=== PATIENT | male | born 1985 | race Caucasian/White ===

== ENCOUNTER 2020-11-21 12:13 | Outpatient (CLI) | payer BC, SELFPAY ==
--- NOTE | ~2020-11-21 | XR_ITS ---
XR sacrum coccyx min 2V DATE: 11/21/2020 12:34 INDICATION: Left sacroiliac pain TECHNIQUE: AP, angled AP and lateral views of the sacrum and coccyx COMPARISON: None FINDINGS: Normal alignment at the pubic symphysis and sacroiliac joints. No sacral or coccygeal fract ure or bone destruction is detected. No erosive change or ankylosis at the sacroiliac joints. IMPRESSION: Negative Reviewed, dictated and finalized at location B. IMPRESSION: Negative
== END 2020-11-21 12:14 | disposition home or self-care (01) ==
PROVIDERS: PCP Family Medicine; Visit Provider Physician Assistant
DX: M53.3 Sacrococcygeal disorders, not elsewhere classified (principal); G89.29 Other chronic pain; M54.5 Low back pain
CPT/HCPCS: 72220

== ENCOUNTER 2023-03-17 10:11 | Emergency (ER) | payer OTHER, SELFPAY ==
--- NOTE | ~2023-03-17 | XR_ITS ---
EXAMINATION: XR chest 2V 03/17/2023 10:57 INDICATION: Left-sided chest pain PROCEDURE: 2 view chest COMPARISON: 06/17/2018 FINDINGS: The lungs are clear. The cardiomediastinal silhouette is within normal limits. There are no pleural effusions. There is no pneumothorax suspected. IMPRESSION: 1: NO ACUTE CARDIOPULMONARY DISEASE. Reviewed, dictated and finalized at location L. MERCE MARKETING MANAGER
--- NOTE | 2023-03-17 10:18 | ECG_ITS ---
Measurements Intervals [place] Rate: 113 P: 65 NE: 135 QRS: 86 QRSD: 105 T: 46 QT: 323 QTc: 444 Interpretive Statements SINUS TACHYCARDIA INCOMPLETE RIGHT BUNDLE BRANCH BLOCK ABNORMAL ECG NO PREVIOUS ECG AVAILABLE FOR COMPARISON Electronically Signed On 03-17-2023 10:31:32 BLAST HOLE DRILLER by Jaspal Abraham D.O.
[2023-03-17 10:35] VITALS: BP 170/97; PULSE 105; RESP 16; TEMP 36.7; O2SAT 100
[2023-03-17 10:45] LABS: INR 0.9; Prothrombin Time 12.2 Seconds (11.1-14.7)
[2023-03-17 10:46] LABS: Partial Thromboplastin Time 24.8 SECONDS (22.3-36.8)
[2023-03-17 10:48] LABS: Alanine Aminotransferase 21 U/L (6-50); Albumin Level 4.3 g/dL (3.5-5.1); Alkaline Phosphatase 39 U/L (38-126); Anion Gap 7 mmol/L (8-16); Aspartate Amino Transferase 25 U/L (17-59); Bilirubin,Total 0.7 mg/dL (0.2-1.3); Blood Urea Nitrogen 10 mg/dL (9-20); Calcium 8.5 mg/dL (8.4-10.2); Carbon Dioxide 23 mmol/L (22-30); Chloride 109 mmol/L (98-107); Estimated CRCL calculation 91 ml/min; Estimated Glomerular Filt Rate > 60; Glucose 97 mg/dL (65-110); Lipase 153 U/L (23-300); Potassium 4.1 mmol/L (3.4-5.0); Sodium 139 mmol/L (137-145)
[2023-03-17 10:51] LABS: Basophils Absolute Auto 0.1 K/mm3 (0.0-0.1); Basophils Percent Auto 0.9 % (0.2-1.2); Eosinophils Absolute Auto 0.2 K/mm3 (0-0.3); Hematocrit 48.9 % (42.0-52.0); Hemoglobin 16.2 g/dL (14.0-18.0); Immature Granulocyte Absolute 0.04 K/mm3 (0.00-0.031); Immature Granulocyte Percent A 0.4 % (0-0.5); Lymphocytes Absolute Auto 2.23 K/mm3 (0.9-3.2); Lymphocytes Percent Auto 21.4 % (18.3-44.2); Mean Corpuscular HGB Conc 33.1 g/dl (32-36); Mean Corpuscular Hemoglobin 31.8 pg (26-34); Mean Corpuscular Volume 95.9 fl (80-100); Mean Platelet Volume 9.5 fl (7.4-10.4); Monocytes Absolute Auto 0.7 K/mm3 (0.1-0.6); Monocytes Percent Auto 6.3 % (2.6-8.5); Neutrophils Absolute Auto 7.2 K/mm3 (1.3-6.7); Platelet Count Result 253 k/mm3 (150-375); Red Cell Distribution Width 13.5 % (11.5-14.5); White Blood Count 10.4 K/mm3 (4.5-10.0)
[2023-03-17 10:54] LABS: Troponin I < 0.012 ng/mL (0.000-0.034)
[2023-03-17 12:00] VITALS: BP 124/72; PULSE 72; RESP 16; O2SAT 98
--- NOTE | 2023-03-17 12:13 | ED.CHESTPAIN ---
HPI - Chest Pain General Chief Complaint: Chest Pain Stated Complaint: chest pain Time Seen by Provider: 03/17/23 12:02 History of Present Illness HPI narrative: this 37-year-old white male presents with chest tightness since 3:00 p.m. yesterday. Patient states the symptoms have been constant since onset. Patient describes it as tight and a little bit of shortness of breath and has noticed some tightness in his left neck. Patient's brother had a stent placed about his age and he is concerned about his heart. Patient denies precipitating or relieving factors. Patient has never had symptoms like this before. Patient states that he does have a history of anxiety and is concerned it might be anxiety as well. Related Data Allergies Allergy/AdvReac Type Severity Reaction Status Date / Time No Known Allergies Allergy Verified 12/08/22 15:45 Review of Systems Review of Systems: All systems reviewed & are unremarkable except as noted in HPI and below PMFSH Past Medical History Medical History Abdominal bloating with cramps Anxiety about health Dietary counseling and surveillance (05/11/18) Elevated BP without diagnosis of hypertension Epigastric abdominal pain CHRIS (generalized anxiety disorder) GERD with esophagitis History of peptic ulcer Major depressive disorder, recurrent, mild Nausea Pruritic rash Right upper quadrant pain Rosacea Screening-pulmonary TB Small intestinal bacterial overgrowth Tobacco use Urticaria Weight loss Family History Family History Mother Autoimmune disease Heart valve disease Father Anxiety Grandparent Cancer unknown, lung or throat Social History Social History Social History: Fianc? Smoking packs per day: 0.5 Smoking cigarettes per day: 10.0 Years smoked: 15 Smoking pack-years: 7.50 Smoking status: Current every day smoker Tobacco type: cigarettes Second hand tobacco smoke exposure: Yes Smoking end date: 04/20/10 Alcohol intake: never Substance use: current Substance use type: marijuana Other substance usage details: Helps back pain Last use: last night Living arrangements: with family Occupation/Education: occupation Gender identity (if verbalized by the patient): Male Sexual Orientation (if Verbalized by the Patient): Straight or Heterosexual Exam Const: General: healthy appearing Nutritional Appearance: well nourished Orientation/consciousness: patient oriented x3 Limitations: no limitations Eyes: EOM: EOMs intact bilaterally Neck: Neck: normal visual inspection, no lymphadenopathy and no meningeal signs Chest: Chest palpation & inspection: normal inspection of the chest Resp: Effort & Inspection: normal respiratory effort Auscultation: clear to auscultation bilaterally Cardio: Rate: regular rate Rhythm: regular rhythm Skin: General skin exam: normal color Wounds: no wounds Neuro: General: patient oriented x3, moves all extremities, no meningeal signs and no focal motor deficits Speech: normal speech Extrem: General: normal to inspection and no clubbing, cyanosis or edema Psych: Mental Status: mental status grossly normal Affect: normal affect Attitude: cooperative Course Vital Signs Vital signs: Vital Signs Temperature 98.1 F 03/17/23 10:35 Pulse Rate 105 H 03/17/23 10:35 Respiratory Rate 16 03/17/23 10:35 Blood Pressure 170/97 H 03/17/23 10:35 Pulse Oximetry 100 03/17/23 10:35 Oxygen Delivery Room Air 03/17/23 10:35 Temperature 98.3 F 03/17/23 12:29 Pulse Rate 78 03/17/23 12:29 Respiratory Rate 16 03/17/23 12:29 Blood Pressure 120/68 03/17/23 12:29 Pulse Oximetry 100 03/17/23 12:29 Oxygen Delivery Room Air 03/17/23 10:35 MDM - Chest Pain MDM Narrative Medical decision making narra
[2023-03-17 12:29] VITALS: BP 120/68; PULSE 78; RESP 16; TEMP 36.8; O2SAT 100
== END 2023-03-17 12:32 | disposition home or self-care (01) ==
PROVIDERS: Emergency Medicine; Emergency Provider Emergency Medicine; PCP Family Medicine
DX: R07.9 Chest pain, unspecified (principal); R00.0 Tachycardia, unspecified; F17.210 Nicotine dependence, cigarettes, uncomplicated; F41.9 Anxiety disorder, unspecified; K21.9 Gastro-esophageal reflux disease without esophagitis; F32.A Depression, unspecified
CPT/HCPCS: 36415; 71046; 80053; 83690; 84484; 85025; 85610; 85730; 93005; 99284

== ENCOUNTER 2023-03-18 17:48 | Emergency (ER) | payer OTHER, SELFPAY ==
[2023-03-18] VITALS (27 sets, daily range): BP systolic 126–186; BP diastolic 73–104; PULSE 74–117; RESP 18–27; TEMP 36.7; O2SAT 94–98
--- NOTE | ~2023-03-18 | XR_ITS ---
EXAMINATION: XR chest 2V Exam Date/Time: 03/18/2023 18:02 KITCHEN OPERATOR HISTORY: Lt sided Chest pain; smoker Comparison: 03/17/2023. RESULT: Lines, tubes, and devices: None. Lungs and pleura: Clear. Cardiomediastinal silhouette: Stable. Other: No acute osseous or upper abdominal finding. IMPRESSION: No acute cardiopulmonary process. Reviewed, dictated and finalized at location K. HEN OPERATOR
--- NOTE | 2023-03-18 17:49 | ECG_ITS ---
Measurements Intervals [place] Rate: 115 P: 71 SC: 158 QRS: 85 QRSD: 104 T: 53 QT: 334 QTc: 463 Interpretive Statements SINUS TACHYCARDIA INCOMPLETE RIGHT BUNDLE BRANCH BLOCK BORDERLINE ST ABNORMALITY- INFERIOR LEADS BASELINE ARTIFACT- I, III, AVR, AVL ABNORMAL ECG COMPARED TO ECG 03/17/2023 10:22:47 NO SIGNIFICANT CHANGES Electronically Signed On 03-18-2023 19:22:50 RELAY ENGINEER by Jaspal Abraham D.O.
[2023-03-18 18:06] LABS: Basophils Absolute Auto 0.1 K/mm3 (0.0-0.1); Basophils Percent Auto 0.7 % (0.2-1.2); Eosinophils Absolute Auto 0.2 K/mm3 (0-0.3); Eosinophils Percent Auto 2.5 % (0-4.4); Hematocrit 46.4 % (42.0-52.0); Hemoglobin 15.6 g/dL (14.0-18.0); Immature Granulocyte Absolute 0.05 K/mm3 (0.00-0.031); Immature Granulocyte Percent A 0.6 % (0-0.5); Lymphocytes Absolute Auto 2.72 K/mm3 (0.9-3.2); Lymphocytes Percent Auto 30.8 % (18.3-44.2); Mean Corpuscular HGB Conc 33.6 g/dl (32-36); Mean Corpuscular Hemoglobin 31.8 pg (26-34); Mean Corpuscular Volume 94.7 fl (80-100); Mean Platelet Volume 9.2 fl (7.4-10.4); Monocytes Absolute Auto 0.5 K/mm3 (0.1-0.6); Monocytes Percent Auto 5.8 % (2.6-8.5); Neutrophils Absolute Auto 5.3 K/mm3 (1.3-6.7); Neutrophils Percent Auto 59.6 % (45.5-73.1); Platelet Count Result 210 k/mm3 (150-375); Red Cell Distribution Width 13.1 % (11.5-14.5); White Blood Count 8.8 K/mm3 (4.5-10.0)
[2023-03-18 18:16] LABS: INR 0.9
[2023-03-18 18:17] LABS: Alanine Aminotransferase 22 U/L (6-50); Albumin Level 4.7 g/dL (3.5-5.1); Alkaline Phosphatase 53 U/L (38-126); Anion Gap 13 mmol/L (8-16); Aspartate Amino Transferase 27 U/L (17-59); Bilirubin,Total 0.5 mg/dL (0.2-1.3); Blood Urea Nitrogen 12 mg/dL (9-20); Calcium 8.8 mg/dL (8.4-10.2); Carbon Dioxide 20 mmol/L (22-30); Chloride 103 mmol/L (98-107); Estimated CRCL calculation 105 ml/min; Estimated Glomerular Filt Rate > 60; Glucose 126 mg/dL (65-110); Lipase 164 U/L (23-300); Potassium 3.5 mmol/L (3.4-5.0); Sodium 136 mmol/L (137-145)
[2023-03-18 18:29] LABS: Troponin I < 0.012 ng/mL (0.000-0.034)
--- NOTE | 2023-03-18 19:16 | ED.GENADULT ---
HPI - General Adult General Chief complaint: Chest Pain Stated complaint: Chest pain Time Seen by Provider: 03/18/23 19:04 History of Present Illness HPI narrative: Patient is a 37-year-old gentleman who presents emergency department with a chief complaint of chest pain. Patient reports that he has been having some discomfort for the last several days in his chest patient states it is severe sharp aching pain that then radiates up into his neck patient states that he was seen in the emergency department yesterday and was discharged home with exposed to follow up with his primary care provider patient has not been able to call and schedule appointment yet and today noticed that his blood pressure was running on the higher side and decided to come back to the emergency department for re-evaluation patient states he is feeling little better at this time patient does report that he has family history for cardiac disease Related Data Allergies Allergy/AdvReac Type Severity Reaction Status Date / Time No Known Allergies Allergy Verified 03/18/23 18:40 Review of Systems Review of Systems: A 10 system review of systems was completed on the patient and is negative except for what is stated in the HPI. Nursing and ancillary documentation was reviewed. [facility] Past Medical History Medical History Abdominal bloating with cramps Anxiety about health Dietary counseling and surveillance (05/11/18) Elevated BP without diagnosis of hypertension Epigastric abdominal pain CHRIS (generalized anxiety disorder) GERD with esophagitis History of peptic ulcer Major depressive disorder, recurrent, mild Nausea Pruritic rash Right upper quadrant pain Rosacea Screening-pulmonary TB Small intestinal bacterial overgrowth Tobacco use Urticaria Weight loss Family History Family History Mother Autoimmune disease Heart valve disease Father Anxiety Grandparent Cancer unknown, lung or throat Social History Social History Social History: Fianc? Smoking packs per day: 0.5 Smoking cigarettes per day: 10.0 Years smoked: 15 Smoking pack-years: 7.50 Smoking status: Current every day smoker Tobacco type: cigarettes Second hand tobacco smoke exposure: Yes Smoking end date: 04/20/10 Alcohol intake: never Substance use: current Substance use type: marijuana Other substance usage details: Helps back pain Last use: last night Living arrangements: with family Occupation/Education: occupation Gender identity (if verbalized by the patient): Male Sexual Orientation (if Verbalized by the Patient): Straight or Heterosexual Exam Narrative: GENERAL: Well-appearing, well-nourished, and in no acute distress. HEAD: Normocephalic, atraumatic. EYES: PERRLA and EOMI. ENT: Nares clear, no rhinorrhea or epistaxis. Mucous membranes moist. NECK: Supple. CHEST: Clear to auscultation. No respiratory distress. HEART: Regular rate and rhythm. No murmur heard. Normal peripheral pulses. ABDOMEN: Soft, nontender, nondistended, normal active bowel sounds. EXTREMITIES: Normal range of motion. No edema. SKIN: Warm, dry, no rash. NEURO: No focal deficits. Alert and oriented x3. PSYCH: Normal mood and affect. Course Vital Signs Vital signs: Vital Signs Temperature 36.7 C 03/18/23 17:54 Pulse Rate 117 H 03/18/23 17:54 Respiratory Rate 18 03/18/23 17:54 Blood Pressure 186/93 H 03/18/23 17:54 Pulse Oximetry 98 03/18/23 17:54 Oxygen Delivery Room Air 03/18/23 17:54 Temperature 36.7 C 03/18/23 17:54 Pulse Rate 84 03/18/23 21:31 Respiratory Rate 23 H 03/18/23 21:31 Blood Pressure 127/84 03/18/23 21:31 Pulse Oximetry 96 03/18/23 21:31 Oxygen Delivery Room Air 03/18/23 17:54 Medical Deci
[2023-03-18 21:23] LABS: Troponin I < 0.012 ng/mL (0.000-0.034)
== END 2023-03-18 22:21 | disposition home or self-care (01) ==
PROVIDERS: Student in an Organized Health Care Education/Training Program; Emergency Provider Emergency Medicine; PCP Family Medicine
DX: R07.89 Other chest pain (principal); F17.210 Nicotine dependence, cigarettes, uncomplicated
CPT/HCPCS: 36415; 71046; 80053; 83690; 84484; 85025; 85610; 85730; 93005; 99284

== ENCOUNTER 2023-04-21 08:26 | Outpatient (CLI) | payer OTHER, SELFPAY ==
--- NOTE | 2023-04-21 08:40 | EST_ITS ---
Patient Info Name: Lei Lerner Age: 37 years : 1985 Gender: Male Ht: 67 in Wt: 177 lbs BSA: 1.97 m2 HR: 68 bpm BP: 143 / 87 mmHg Heart Rhythm: Sinus Rhythm Exam Date: 04/21/2023 10:19 AM Exam Location: Echo Lab Patient Status: Outpatient Admit Date: 04/21/2023 Staff Ordering Physician: Valerie Wood PA-C Attending Provider: Valerie Wood PA-C Exercise Technologist: Nadia Riggs CT Nurse: Dayana Berry APN Exam Type: CA stress test treadmill Study Info Indications R07.89 - Other chest pain A treadmill exercise stress test was performed. Summary 1. Exercise capacity very good at >10 METS. 2. No symptoms reported during stress test. 3. Baseline motion artifact during exercise which limits interpretation for ischemic changes, however, no clear evidence of STTW abnormality consistent with ischemic changes. Consider repeating stress test with an imaging modality. 4. Stress test supervised by Dayana Berry NP. Stress test interpreted by Graciela Butler MD. Protocol: Raul Stress ECG Details Stage: REST Duration (min): 0 min : 58 sec Speed (mph): 0.0 Grade (%): 0 HR (bpm): 70 SBP (mmHg): 143 DBP (mmHg): 87 METS: --- Stage: REST Duration (min): 7 min : 3 sec Speed (mph): 0.0 Grade (%): 0 HR (bpm): 78 SBP (mmHg): 143 DBP (mmHg): 87 METS: --- Stage: STAGE 1 Duration (min): 1 min : 0 sec Speed (mph): 1.7 Grade (%): 10 HR (bpm): 93 SBP (mmHg): 143 DBP (mmHg): 87 METS: --- Stage: STAGE 1 Duration (min): 2 min : 0 sec Speed (mph): 1.7 Grade (%): 10 HR (bpm): 96 SBP (mmHg): 143 DBP (mmHg): 87 METS: --- Stage: STAGE 1 Duration (min): 3 min : 0 sec Speed (mph): 1.7 Grade (%): 10 HR (bpm): 98 SBP (mmHg): 160 DBP (mmHg): 71 METS: --- Stage: STAGE 2 Duration (min): 1 min : 0 sec Speed (mph): 2.5 Grade (%): 12 HR (bpm): 106 SBP (mmHg): 160 DBP (mmHg): 71 METS: --- Stage: STAGE 2 Duration (min): 2 min : 0 sec Speed (mph): 2.5 Grade (%): 12 HR (bpm): 112 SBP (mmHg): 156 DBP (mmHg): 74 METS: --- Stage: STAGE 2 Duration (min): 3 min : 0 sec Speed (mph): 2.5 Grade (%): 12 HR (bpm): 117 SBP (mmHg): 156 DBP (mmHg): 74 METS: --- Stage: STAGE 3 Duration (min): 1 min : 0 sec Speed (mph): 3.4 Grade (%): 14 HR (bpm): 128 SBP (mmHg): 155 DBP (mmHg): 77 METS: --- Stage: STAGE 3 Duration (min): 2 min : 0 sec Speed (mph): 3.4 Grade (%): 14 HR (bpm): 130 SBP (mmHg): 155 DBP (mmHg): 77 METS: --- Stage: STAGE 3 Duration (min): 3 min : 0 sec Speed (mph): 3.4 Grade (%): 14 HR (bpm): 134 SBP (mmHg): 179 DBP (mmHg): 80 METS: --- Stage: STAGE 4 Duration (min): 1 min : 0 sec Speed (mph): 4.2 Grade (%): 16 HR (bpm): 150 SBP (mmHg): 179 DBP (mmHg): 80 METS: --- Stage: STAGE 4 Duration (min): 2 min : 0 sec Speed (mph): 4.2 Grade (%): 16
== END 2023-04-21 08:27 | disposition home or self-care (01) ==
LOC: ANHCARD 08:29
PROVIDERS: PCP Family Medicine; Visit Provider Physician Assistant
DX: R07.9 Chest pain, unspecified (principal)
CPT/HCPCS: 93017

== ENCOUNTER 2024-05-24 16:17 | Emergency (ER) | payer OTHER, SELFPAY ==
--- OUTSIDE RECORDS SUMMARY | 2024-05-24 16:19 | XMS_ITS | Patient Health Summary ---
Author Organization [facility] [employer] Address [address] [place] [address] Care Team Providers Care Fixing Carpenter Name Role Phone Mirella Avelar MD Primary Care Provider + Note from [facility] [employer] [facility] [employer],non-owned Affiliates and Associated Physician Practices is amultiple site organization consisting of ambulatory clinics and hospital sitesin [place], [place], [place] and [place]. This disclosure is being madepursuant to the Care Everywhere program and may not contain all information available regarding this patient. Last updated 18.[employer] Allergies No known active allergies Medications Be aware that medications may not be up to date on this document. Always verify current medications with the patient. No known medications Social History Tobacco Use Types Packs/Day Years Used Date Smoking Tobacco: Every Day Cigarettes Alcohol Use Standard Drinks/Week Comments No 0 (1 standard drink = 0.6 oz pur e alcohol) Sex and Gender Information Value Date Recorded Sex Assigned at Not on file Gender Identity Not on file Sexual Orientation Not on file Last Filed Vital Signs Vital Sign Reading Time Taken Comments Blood Pressure - - Pulse - - Temperature - - Respiratory Rate - - Oxygen Saturation - - Inhaled Oxygen Concentration - - Weight 72.6 kg (160 lb) 10/20/2018 7:14 AM CDT Height 170.2 cm (5' 7 ) 10/20/2018 7:14 AM CDT Body Mass Index 25.06 10/20/2018 7:14 AM CDT Procedures * BREATH HYDROGEN/METHANE TEST(Performed 10/20/2018) Performed for Abdominal bloating, Abdominal pain, unspecified abdominal location Care Teams Fixing Carpenter Relationship Specialty Start Date End Date Mirella Avelar MD [address] [place] [address] PCP - General 09/27/18
--- OUTSIDE RECORDS SUMMARY | 2024-05-24 16:19 | XMS_ITS | Clinical Summary ---
Author Organization [facility] [employer] Address [address] [place] [address] Care Team Providers Care Linen Supply Load Builder Name Role Phone Mirella Avelar MD Primary Care Provider + Source Comments [facility] [employer],non-[facility] Affiliates and Associated Physician Practices is amultiple site organization consisting of ambulatory clinics and hospital sitesin [place], [place], [place] and [place]. This disclosure is being madepursuant to the Care Everywhere program and may not contain all information available regarding this patient. Last updated 18.[employer] Allergies No known active allergies Medications Be [...] Mass Index 25.06 10/20/2018 7:14 AM CDT Plan of Treatment Health Maintenance Due Date Last Done Comments HIV SCREENING 11/28/1999 HEPATITIS C SCREENING 11/23/2002 DTAP/TDAP/TD VACCINES (1 - Tdap) 11/28/2003 HEPATITIS B VACCINE (1 of 3 - 19+ 3-dose series) 11/28/2003 PNEUMOCOCCAL VACCINE (1 of 2 - PCV) 11/28/2003 COVID-19 VACCINE ( - 2023-2 5 season) 2023 INFLUENZA VACCINE (#1) 2023 DEPRESSION SCREENING 04/20/2024 ZOSTER VACCINE (1 of 2) 2034 HIB VACCINE Aged Out No longer eligi ble based on patient's age to complete this topic HPV VACCINE Aged Out No longer eligi ble based on patient's age to complete this topic MENINGOCOCCAL (Group B) VACCINE Aged Out No longer eligible based on patient's age to complete this topic MENINGOCOCCAL VACCINE Aged Out No augustina john eligible based on patient's age to complete this topic Care Teams Linen Supply Load Builder Relationship Specialty Start Date End Date Mirella Avelar MD [address] [place], [place] [id number] PCP - General 09/27/18
--- OUTSIDE RECORDS SUMMARY | 2024-05-24 16:19 | XMS_ITS | Referral Summary ---
Author Organization [facility] [employer] Address [address] [place] [address] Care Team Providers Care Critical Care Nurse Practitioner Name Role Phone Mirella Avelar MD Primary Care Provider + Source Comments [facility] [employer],non-[facility] Affiliates and Associated Physician Practices is amultiple site organization consisting of ambulatory clinics and hospital sitesin [place], [place], [place] and [place]. This disclosure is being madepursuant to the Care Everywhere program and may not contain all information available regarding this patient. Last updated 18.[employer] Allergies No known active allergies Medications Be [...] 10/20/2018 7:14 AM CDT Plan of Treatment Not on file Care Teams Critical Care Nurse Practitioner Relationship Specialty Start Date End Date Mierlla Avelar MD [address] [place] [address] PCP - General 09/27/18
[2024-05-24 16:25] VITALS: BP 150/89; PULSE 87; RESP 20; TEMP 37.7; O2SAT 98
[2024-05-24 16:49] LABS: EDCOVIDSCREEN Negative (Negative); EDINFLUASCREEN Positive (Negative); EDINFLUBSCREEN Negative (Negative)
--- NOTE | 2024-05-24 16:59 | ED.URI ---
HPI - URI/Sore Throat General Chief Complaint: Upper Respiratory Infection Stated Complaint: flu like symptoms/rash Source: patient and RN notes reviewed Mode of arrival: ambulatory Limitations: no limitations History of Present Illness HPI Narrative: 38-year-old male presented for complaint of headache, body aches, sinus pressure/congestion, cough, fever/chills. onset 4 days. Woke with rash to both arms and face this morning. States the rash was red and itchy. He took Benadryl and says it is improving. Denies Sore throat, sob, wheezing, n/v/d. states his son had influenza and strep throat. Taking DayQuil and NyQuil for symptoms. smokes 1 ppd. MD elicited complaint: cough Related Data Allergies Allergy/AdvReac Type Severity Reaction Status Date / Time No Known Allergies Allergy Verified 05/24/24 16:40 Review of Systems Review of Systems: CONSTITUTIONAL: Endorses malaise, chills, sweats, fever EYES: Denies visual changes, redness, or discharge ENT: Reports rhinorrhea, congestion, sinus pain, otalgia, sore throat CARDIOVASCULAR: Denies chest pain, palpitations, edema RESPIRATORY: Reports cough, post nasal drainage. Denies dyspnea GASTROINTESTINAL: Denies abdominal pain, nausea, vomiting, diarrhea SKIN: Reports rash MUSCULOSKELETAL: Endorses myalgia NEUROLOGIC: Denies headache PMFSH Past Medical History Medical History Weight loss Urticaria Small intestinal bacterial overgrowth Screening-pulmonary TB Rosacea Right upper quadrant pain Pruritic rash Nausea CHRIS (generalized anxiety disorder) Epigastric abdominal pain Elevated BP without diagnosis of hypertension Dietary counseling and surveillance (05/11/18) Anxiety about health Abdominal bloating with cramps Tobacco use Major depressive disorder, recurrent, mild GERD with esophagitis History of peptic ulcer Family History Family History Mother Autoimmune disease Heart valve disease Father Anxiety Grandparent Cancer unknown, lung or throat Social History Social History (Updated 05/24/24 @ 17:06 by Ksenia Conde APRN) Social History: Fianc? Smoking packs per day: 1 Smoking cigarettes per day: 20.0 Years smoked: 15 Smoking pack-years: 15.00 Smoking status: Current every day smoker Tobacco type: cigarettes Second hand tobacco smoke exposure: Yes Smoking end date: 04/20/10 Alcohol intake: never Substance use: current Substance use type: marijuana Other substance usage details: Helps back pain Last use: last night Living arrangements: with family Occupation/Education: occupation Gender identity (if verbalized by the patient): Male Sexual Orientation (if Verbalized by the Patient): Straight or Heterosexual Exam Narrative: GENERAL: Ill-appearing, nontoxic no acute distress. EYES: conjunctivae clear ENT: Mucous membranes moist. TM pearly garcía with dull light reflex bilaterally; no tragal tenderness. Oropharynx erythematous without lesions or exudate, no drooling, no hoarseness, no trismus, uvula midline. No tripod positioning, muffled voice, soft palate or pharyngeal wall bulging NECK: Supple. No lymphadenopathy CHEST: scattered wheezing throughout all urbina. HEART: Regular rate and rhythm. No murmur heard. SKIN: Warm, dry, Faint erythematous rash fading to upper arms NEURO: Alert and oriented x3. PSYCH: Normal mood and affect Course Course Emergency Course: Patient is aware of diagnosis, understands and agrees to treatment plan. Anticipatory guidance given. Patient agrees to follow-up as directed and is aware of reasons to seek care at the emergency department. Portions of this record may have been created with voice recognition software Level of Care: Express Care Visit Vital Signs Vital signs: Vital Signs Temperature 99.8 F H 05/24/24 16:25 Pulse Rate 87 05/24/24 16:25 Respiratory Rate 20 05/24/24 16:25 Blood Pressure 150/89 H 05/24/24 16:25 Pulse Oximetry 98 05/24/24 16:25 Oxygen Delivery Room Air 05/24/24 16:25 Temperature 99.8 F H 05/24/24 16:25 Pulse Rate 87 05/24/24 16:25 Respiratory Rate 20 05/24/24 16:25 Blood Pressure 150/89 H 05/24/24 16:25 Pulse Oximetry 98 05/24/24 16:25 Oxygen Delivery Room Air 05/24/24 16:25 reviewed MDM - URI/Sore Throat MDM Narrative Medical decision making narrative: positive flu. Discussed physical exam findings. Advised supportive measures and signs/symptoms to go to the ER. Pt is appropriate for outpt treatment and f/u. Differential Diagnosis Differential diagnosis: Likely upper respiratory infection, sinusitis and viral infection Lab Data Labs: Lab Results 05/24/24 Range/Units 16:33 POC Influenza A Ag Positive (Negative) POC Influenza B Ag Negative (Negative) POC SARS CoV-2 Ag Negative (Negative) Discharge Plan Discharge Clinical Impression: Influenza Patient Disposition: Home, Self-Care Condition: Stable Instructions: Antibiotic Form, Influenza (ED) Additional Instructions: Influenza positive You should avoid crowds until you are fever free for 24 hours without the use of fever reducing medications, or the symptoms are improved Rest. Drink plenty of fluids. Tylenol 1000mg every 8 hours as needed for pain/fever Recommend Flonase spray and Zyrtec (or Claritin/Genevieve) for sinus pressure/congestion over the counter Cough syrup may cause drowsiness; avoid driving or take it at night time. Rapid strep swab was negative today You will be notified in a few days if the culture comes back positive for strep, and appropriate antibiotics will be called in at that time. if symptoms are due to a viral illness, it is not treated with antibiotics. Viral symptoms can be present for up to 10-14 days. --Follow up with your PCP --Go to the ER For worsening symptoms or concerns Patient Language: Armenian Prescriptions: No Action aspirin 81 mg tablet,delayed release (DR/EC) 81 mg PO DAILY Qty: 90 0RF propranolol 20 mg tablet 20 mg PO Q12H PRN (Reason: palpitations) Qty: 30 0RF rosuvastatin 5 mg tablet 5 mg PO DAILY Qty: 30 2RF lisinopril 20 mg tablet See Rx Instructions .ROUTE .COMPLEX Qty: 60 2RF Dose Instruction: TAKE 1 TABLET BY MOUTH TWICE DAILY Rx Instructions: TAKE 1 TABLET BY MOUTH TWICE DAILY Follow-up/Referrals: Rosio,Mirella Pelayo MD [Primary Care Provider] - Stand Alone Forms: Work/School Release IP Time of Disposition: 17:18
[2024-05-24 17:23] LABS: EDSTREPNEGPOS1 Negative (Negative)
== END 2024-05-24 17:20 | disposition home or self-care (01) ==
PROVIDERS: Emergency Provider Nurse Practitioner Family; PCP Family Medicine
DX: J11.1 Influenza due to unidentified influenza virus with other respiratory manifestations (principal); I10 Essential (primary) hypertension; F17.210 Nicotine dependence, cigarettes, uncomplicated; Z20.822 Contact with and (suspected) exposure to COVID-19
CPT/HCPCS: 87081; 87426; 87804; 87880; 99213; G0463